=== PATIENT | female | born 1975 | race Caucasian/White ===

== ENCOUNTER 2017-07-12 12:08 | Emergency (ER) | payer BC, OTHER ==
--- NOTE | 2017-07-12 12:12 | EDM.PDOC ---
ED HPI GENERAL MEDICAL PROBLEM - General Chief Complaint: General Stated Complaint: Right shoulder pain Time Seen by Provider: 07/12/17 12:12 Source of Information: Reports: Patient, Old Records ([facility] chart/EMR) History Limitations: Reports: No Limitations - History of Present Illness INITIAL COMMENTS - FREE TEXT/NARRATIVE: The patient was brought to the emergency room via transport vehicle from [facility] for evaluation of a Workmen's Compensation injury, which occurred at about 11: 00 a.m. this morning. The patient was throwing about a 10 pound bag of garbage into the bin when she experienced sudden sharp and then subsequent throbbing 8/ 10 right shoulder pain with possible mild paresthesias extending to the distal aspects of her arm. She denies any previous shoulder injury, although she is right-handed. No treatment prior to arrival. The patient also states that there is also some mild exacerbation of her chronic intermittent right elbow pain, however no significant worsening discomfort on today's injury. No history of fall, injury, neurological deficits, neck/back pain, other injuries, etc. No recent history of abdominal pain, heartburn, nausea, diarrhea, melena, gross hematochezia, or any food intolerance, including fatty foods, etc.. The patient also denies any recent fever, cough, wheezing, dyspnea, etc.. Onset: Today Onset Date: 07/12/17 Onset Time: 11:00 Duration: Constant Location: Reports: Upper Extremity, Right, Radiates to (As above). 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 Denies: Allergic Rhinitis, Cataract , Glaucoma, Hard of Hearing, Impaired Vision, Macular Degeneration, Otitis Media , Retinal Detachment Other HEENT History: Borderline left-sided mastoiditis in December 2006 Cardiovascular History: Reports: Other (See Below). Denies: Afib, Aneurysm, Arrhythmia, Blood Clots/VTE/DVT, CAD, Heart Murmur, High Cholesterol, Hypertension, PA, Syncope Other Cardiovascular History: No apparent hyperlipidemia despite previous history of obesity and fatty liver Respiratory History: Reports: None, Intubation, Previous. Denies: Asthma, COPD , Intubation, Difficult, PE, Pneumothorax, Sleep Apnea, TB Gastrointestinal History: Reports: Cholelithiasis, Other (See Below). Denies: Bowel Obstruction, Celiac Disease, Chronic Constipation, Chronic Diarrhea, Fecal Incontinence, Gastritis, GERD, GI Bleed, Hepatitis, Inflammatory Bowel Disease, Irritable Bowel Syndrome, Jaundice, Pancreatitis, PUD Other Gastrointestinal History: Fatty liver Genitourinary History: Reports: None. 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 Denies: Spontaneous , Therapeutic : 3 Para: 3 LMP (Approximate): Other (See Below) Other OB/BYN History: Surgical menopause as below secondary to endometriosis. Full term without complications during pregnancies or deliveries Musculoskeletal History: Reports: Arthritis, Osteoarthritis. Denies: Amputation , Back Pain, Chronic, Fracture, Gout, Neck Pain, Chronic, Osteoporosis, RA, SLE Neurological History: Reports: None. Denies: Cerebral Aneurysms, Concussion, CVA, Headaches, Chronic, Head Trauma, Migraines, MS, Neuropathy, Peripheral, Parkinson's, Seizure, TIA Psychiatric History: Reports: Anxiety, Depression. Denies: Abuse, Victim of, ADD, ADHD, Addiction, Psych Hospitalization(s), PTSD, Suicide Attempt, Suicidal Ideation Endocrine/Metabolic History: Reports: Hypothyroidism, Obesity/BMI 30+. Denies: Diabetes, Type I, Diabetes, Type II, Diabetes Mellitus, Type 3c, IDDM Hematologic History: Reports: None. Denies: Anemia, Blood Transfusion(s) Immunologic History: Reports: None. Denies: AIDS, HIV, SLE Oncologic (Cancer) History: Reports: None. Denies: Breast, Cervix, Hodgkin's Lymphoma, Leukemia, Lymphoma, Malignant Melanoma, Non-Hodgkin's Lymphoma, Ovarian, Squamous Cell Carcinoma, Uterine Dermatologic History: Reports: Other (See Below). Denies: Eczema, Psoriasis Other Dermatologic History: Intermittent tinea corporis in the inframammary region - Infectious Disease History Infectious Disease History: Reports: Chicken Pox. Denies: C-Difficile, Measles , Meningitis, Mononucleosis, MRSA, Mumps, Pertussis (Whooping Cough), Rheumatic Fever, Rubella, Scarlet Fever, Shingles, TB, VRE - Past Surgical History Head Surgeries/Procedures: Reports: None HEENT Surgical History: Reports: Adenoidectomy, LASIK, Tonsillectomy, Other ( See Below). Denies: Cataract Surgery, Eye Surgery, Laser Surgery, Myringotomy w Tube(s), Naso-Sinus Surgery, Oral Surgery Other HEENT Surgeries/Procedures: Tonsillectomy and adenoidectomy at age 6. LASIK in 2002 with no current glasses required. Kin[place] teeth extraction 3 at age 26 Cardiovascular Surgical History: Reports: None. Denies: Varicose Respiratory Surgical History: Reports: None. Denies: Thoracentesis GI Surgical History: Reports: Cholecystectomy, Colonoscopy, Other (See Below). Denies: Appendectomy, EGD, Hernia, Abdominal, Hernia, Inguinal, Hernia Repair/ Other, Polypectomy Other GI Surgeries/Procedures: Cholecystectomy on 08/31/06. Colonoscopy in 1998. Female Surgical History: Reports: Hysterectomy, Tubal Ligation, Other (See Below). Denies: Section, D&C, Salpingo-Oophorectomy Other Female Surgeries/Procedures: Complete hysterectomy at age 36 secondary to endometriosis. Bilateral tubal ligation in November 2004. Endocrine Surgical History: Reports: None Neurological Surgical History: Reports: None. Denies: C-Spine, Discectomy, Laminectomy, Lumbar Spine, Sacral Spine, Spinal Fusion, Thoracic Spine, Vertebroplasty Musculoskeletal Surgical History: Reports: None. Denies: Arthroscopic Procedure , Carpal Tunnel, Ganglion Cyst, Joint Replacement, ORIF, Shoulder Surgery Oncologic Surgical History: Reports: None Dermatological Surgical History: Reports: None - Past Imaging History Past Imaging History: Reports: CAT Scan (CT of the temporal region on 08/31/16), Ultrasound (Right upper quadrant/hepatic/gallbladder ultrasound on 08/31/06, pelvic ultrasound on 03/10/03) Social & Family History - Family History Family Medical History: Noncontributory - Tobacco Use Smoking Status *Q: Current Every Day Smoker Tobacco Use Within Last Twelve Months: Cigarettes Years of Tobacco use: 2 Packs/Tins Daily: 0.5 Packs/Tins Daily Comment: Started smoking at age 39 Used Tobacco, but Quit: No Smoking Cessation Information Provided To Patient: Yes Second Hand Smoke Exposure: No Second Hand Smoke Education Provided: No - Caffeine Use Caffeine Use: Reports: Coffee (2 cups per day), Soda (1 soda per day). Denies: Energy Drinks, Tea - Alcohol Use Alcohol Use History: Yes Days Per Week of Alcohol Use: 0 Number of Drinks Per Day: 3 Number of Drinks Per Day Comment: No previous DWIs, problems with alcohol abuse , etc.. 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 ED EXAM, GENERAL - Physical Exam Exam: See Below Exam Limited By: No Limitations General Appearance: Alert, WD/WN, No Apparent Distress, Anxious (Mild) Head: Atraumatic, Normocephalic Neck: Normal Inspection, Supple, Non-Tender, Full Range of Motion. No: Lymphadenopathy (L), Lymphadenopathy (R), Thyromegaly Respiratory/Chest: No Respiratory Distress, Lungs Clear, Normal Breath Sounds, No Accessory Muscle Use, Chest Non-Tender. No: Pleural Rub, Retractions Cardiovascular: Normal Peripheral Pulses, Regular Rate, Rhythm, No Edema, No Gallop, No JVD, No Murmur, No Rub. No: Gallop/S3, Gallop/S4, Friction Rub Peripheral Pulses: 2+: Radial (L), Radial (R) GI/Abdominal: Normal Bowel Sounds, Soft, Non-Tender, No Organomegaly, No Distention, No Abnormal Bruit, No Mass. No: Guarding (Female) Exam: Deferred Rectal (Female) Exam: Deferred Back Exam: Normal Inspection, Full Range of Motion. No: CVA Tenderness (L), CVA Tenderness (R), Muscle Spasm Extremities: No Pedal Edema, Normal Capillary Refill, Arm Pain (Right shoulder as below with right elbow showing no significant localized tenderness and overall excellent range of motion), Limited Range of Motion (Mild in right shoulder secondary to pain with no subluxation, deformity, crepitation, effusion , instability, etc.). No: Joint Swelling, Tori's Sign, Increased Warmth Neurological: Alert, Oriented, CN II-XII Intact, Normal Cognition, Normal Gait, Normal Reflexes, No Motor/Sensory Deficits Psychiatric: Anxious (Mild). No: Depressed Mood Skin Exam: Warm, Dry, Intact, Normal Color, No Rash, Stud(s) (Bilateral auricular), Tattoo(s) (Multiple). No: Diaphoretic, Wound/Incision Lymphatic: No Adenopathy Course - Vital Signs Last Recorded V/S: Last Vital Signs Temp 36.4 C 07/12/17 12:10 Pulse 90 07/12/17 12:10 Resp 16 07/12/17 12:10 BP 123/85 07/12/17 12:10 Pulse Ox 100 07/12/17 12:10 Vital Signs - 24 hr 07/12/17 12:10 Temperature [ 36.4 C Temporal] Pulse, 90 Peripheral [ Pulse Oximetry] Respiratory 16 Rate Blood Pressure 123/85 [Left Upper Arm ] O2 Sat by Pulse 100 Oximetry - Orders/Labs/Meds Orders: Active Orders 24 hr Category Date Time Status Shoulder Comp Rt [CR] Stat Exams 07/12/17 12:13 Taken Obtain Past Medical Record [OM.PC] Routine Oth 07/12/17 12:12 Active Labs: None Meds: None - Radiology Interpretation Free Text/Narrative:: X-rays of the right shoulder, complete, shows no evidence of dislocation, fracture, etc. Departure - Departure Time of Disposition: 13:15 Disposition: Home, Self-Care 01 Condition: Good Clinical Impression: Tobacco abuse counseling, Mixed anxiety depressive disorder, Hypothyroidism ( acquired) Sprain of right shoulder Qualifiers: Encounter type: initial encounter Shoulder sprain type: unspecified sprain Qualified Code(s): S43.401A - Unspecified sprain of right shoulder joint, initial encounter Osteoarthritis Qualifiers: Osteoarthritis location: multiple joints Osteoarthritis type: primary Qualified Code(s): M15.0 - Primary generalized (osteo)arthritis - Discharge Information Instructions: Shoulder Pain, Shoulder Sprain Referrals: Lissy Rae MD [Primary Care Provider] - Forms: ED Department Discharge Additional Instructions: 1. Followup with your regular provider in 7 days as directed for reevaluation and possible repeat x-rays of your right shoulder depending on your symptoms at that time. Work excuse to be evaluated at that visit. 2. BenGay or equivalent, heating pad, and/or ice packs as directed. 3. Tylenol 650 mg by mouth every 4 hours and/or OTC ibuprofen 2-3 tabs by mouth every 6 hours with food as directed./needed. 4. Work excuse- See Form 5. Activity restrictions as discussed including limited use of your right arm and shoulder with 10 pound lifting restrictions until otherwise directed by your regular provider 6. Stop all tobacco use RANJITH as directed/per provided information and consider contacting Quit LIne, etc.. 7. Immediately after this visit verify that your cellular telephone's voicemail has been activated and is empty. Also verify that your home telephone 's answering machine is operating properly and has space to receive messages. Note that it is sometimes necessary for us to be able to contact you at a later date to discuss your medical care. - Problem List & Annotations (1) Sprain of right shoulder SNOMED Code(s): 0066520 Code(s): S43.401A - UNSPECIFIED SPRAIN OF RIGHT SHOULDER JOINT, INIT ENCNTR Status: Acute Priority: High Onset Date: 07/12/17 Annotation/Comment:: Symptomatic relief as per discharge instructions. Work excuse/[place] form and Workmen's Compensation forms were completed. Activity restrictions discussed. Close follow-up by regular provider. Qualifiers: Encounter type: initial encounter Shoulder sprain type: unspecified sprain Qualified Code(s): S43.401A - Unspecified sprain of right shoulder joint, initial encounter (2) Osteoarthritis SNOMED Code(s): 511943423 Code(s): M19.90 - UNSPECIFIED OSTEOARTHRITIS, UNSPECIFIED SITE Status: Chronic Priority: Medium Annotation/Comment:: Otherwise stable by history Qualifiers: Osteoarthritis location: multiple joints Osteoarthritis type: primary Qualified Code(s): M15.0 - Primary generalized (osteo)arthritis (3) Hypothyroidism (acquired) SNOMED Code(s): 737380133 Code(s): E03.9 - HYPOTHYROIDISM, UNSPECIFIED Status: Chronic Priority: Medium Annotation/Comment:: Currently under therapy and stable by history (4) Mixed anxiety depressive disorder SNOMED Code(s): 103970685 Code(s): F41.8 - OTHER SPECIFIED ANXIETY DISORDERS Status: Chronic Priority: Medium Annotation/Comment:: Stable by history (5) Tobacco abuse counseling SNOMED Code(s): 112954057, 180715407, [id number] Code(s): Z71.6 - TOBACCO ABUSE COUNSELING Status: Chronic Priority: Medium Annotation/Comment:: Stop all tobacco use RANJITH as directed/per provided information and consider contacting Quit LIne, etc.. - Problem List Review Problem List Initiated/Reviewed/Updated: Yes - My Orders Last 24 Hours: My Active Orders 07/12/17 12:12 Obtain Past Medical Record [OM.PC] Routine 07/12/17 12:13 Shoulder Comp Rt [CR] Stat - Assessment/Plan Last 24 Hours: My Active Orders 07/12/17 12:12 Obtain Past Medical Record [OM.PC] Routine 07/12/17 12:13 Shoulder Comp Rt [CR] Stat Assessment:: As above Plan: As above. Extensive precautions were given to the patient, who is in agreement with the treatment plan. See Patient Instructions for further treatment and plan.
== END 2017-07-12 13:15 | disposition home or self-care (01) ==
LOC: LL.ED 12:08
DX: S43.401A Unspecified sprain of right shoulder joint, initial encounter (principal); F41.8 Other specified anxiety disorders; E03.9 Hypothyroidism, unspecified; M15.0 Primary generalized (osteo)arthritis; E66.9 Obesity, unspecified; F17.210 Nicotine dependence, cigarettes, uncomplicated; Z71.6 Tobacco abuse counseling; Z79.899 Other long term (current) drug therapy
CPT/HCPCS: 73030-RT; 99283

== ENCOUNTER 2018-07-05 17:24 | Emergency (ER) | payer BC, OTHER ==
[2018-07-05] MEDS ORDERED: Aspirin 81 MG Tab.Chew CHEW ONE (17:31)
[2018-07-05] MEDS ORDERED: Famotidine 20 MG/2 ML SDV IVPUSH ONE (17:31)
[2018-07-05] MEDS ORDERED: Ticagrelor 90 MG Tab PO ONE (17:31)
--- NOTE | 2018-07-05 17:31 | EDM.PDOC ---
ED HPI GENERAL MEDICAL PROBLEM - General Chief Complaint: Chest Pain Stated Complaint: chest pain Time Seen by Provider: 07/05/18 17:31 Source of Information: Reports: Patient, EMS, Family (Sister, Isabel), Old Records ([facility] chart/EMR), Other ([facility] EMR). 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 Note that the patient was initially evaluated by her regular provider, Steven Jones PA-C, at the [facility] in [place], with an EKG performed in that clinic but no other medications or treatment prior to arrival of the paramedics. Note that the patient did have some significant dizziness and near syncopal episode at the [facility] prior to transfer. She complains of a 10/10 retrosternal chest pressure radiating into the interscapular regions bilaterally and right cervical region with additional dyspnea, and nausea with symptoms waking her up at 3 AM. She has also been having some nonspecific arthralgias during the last week. She did excessively using ibuprofen yesterday, including 600 mg on a daily on a 2-3 hour basis with last dose at about 19:30 hours yesterday evening. She is not taking any medications for her current symptoms since that time, including her narcotic pain medication for her recent right shoulder surgery as below. The patient denies any heart flutter, orthopnea, diaphoresis, paresthesias, recent decreased exercise tolerance, or any other anginal-type symptoms. No recent history of abdominal pain, heartburn, emesis, diarrhea, melena, gross hematochezia, or any food intolerance, including fatty foods, etc. with last bowel movement yesterday morning. She denies any gross hematuria, colic, or other UTI symptoms. The patient also denies any recent fever, cough, wheezing, etc.. Onset: Today, Sudden Onset Date: 07/05/18 Onset Time: 03:00 Location: Reports: Neck, Chest, Back, Radiates to (As above). Denies: Head, Face, Abdomen, Upper Extremity, Left, Upper Extremity, Right Quality: Reports: Pressure, Same as Previous Episode Severity: Severe Improves with: Reports: None Worsens with: Reports: None Context: Reports: Other (As above). Denies: Lifting, Sick Contact, Trauma Associated Symptoms: Reports: Chest Pain, Nausea/Vomiting (No emesis), Shortness of Breath, Syncope (Near syncope as above). 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, Other (see below) (As above) chest pain Pain Score (Numeric/FACES): 10 - Related Data Allergies Allergy/AdvReac Type Severity Reaction Status Date / Time No Known Allergies Allergy Verified 07/05/18 18:31 Home Meds: Home Meds FLUoxetine HCl [Fluoxetine HCl] 40 mg PO QAM 07/12/17 [History] Gabapentin [Neurontin] 600 mg PO QID 12/24/17 [History] Hydrocodone/Acetaminophen [Hydrocodon-Acetaminophn 10-325] 0.5 tab PO Q6HR PRN 12/24/17 [History] Levothyroxine 25 mcg PO QAM 12/24/17 [History] metFORMIN [Glucophage] 500 mg PO BID 12/24/17 [History] Cyclobenzaprine [Flexeril] 10 mg PO TID PRN #30 tab 07/05/18 [Rx] DULoxetine HCl [Duloxetine HCl] 60 mg PO QAM 07/05/18 [History] Ibuprofen 600 mg PO Q6H PRN 07/05/18 [History] Past Medical History HEENT History: Reports: Other (See Below). Denies: Allergic Rhinitis, Glaucoma , Hard of Hearing, Impaired Vision, Macular Degeneration, Otitis Media, Retinal Detachment Other HEENT History: Borderline left-sided mastoiditis in December 2006. Note status post LASIK surgery as below. Cardiovascular History: Reports: Other (See Below). Denies: Afib, Aneurysm, Arrhythmia, Blood Clots/VTE/DVT, CAD, Heart Failure, Heart Murmur, High Cholesterol, Hypertension, [place], PVD, Syncope Other Cardiovascular History: No apparent hyperlipidemia despite previous history of obesity and fatty liver Respiratory History: Reports: COPD, Intubation, Previous, Sleep Apnea. Denies: Asthma, Bronchitis, Recurrent, Intubation, Difficult, PE, Pneumonia, Recurrent, Pneumothorax, TB, Other (See Below) Other Respiratory History: Mild COPD by chest x-ray with history of tobacco use and no current medical therapy required. Severe obstructive sleep apnea with patient discontinuing her CPAP on her own. Gastrointestinal History: Reports: Cholelithiasis, Other (See Below). Denies: Celiac Disease, Chronic Constipation, Chronic Diarrhea, Fecal Incontinence, Gastritis, GERD, GI Bleed, Hepatitis, Hiatal Hernia, Irritable Bowel Syndrome, Jaundice, Pancreatitis Other Gastrointestinal History: Fatty liver Genitourinary History: Reports: Urinary Incontinence. Denies: Acute Renal Failure, Chronic Renal Insuffiency, Renal Calculus, STD, UTI, Recurrent MILD DISABILITIES TEACHER History: Reports: Dysfunctional Uterine Bleeding, Fibroids, : 3 Para: 3 LMP (Approximate): Other (See Below) Other MILD DISABILITIES TEACHER History: Surgical menopause as below secondary to endometriosis. Full term without complications during pregnancies or deliveries. Polycystic ovary syndrome with current metformin therapy. Musculoskeletal History: Reports: Arthritis, Back Pain, Chronic, Neck Pain, Chronic, Osteoarthritis. Denies: Amputation, Fracture, Gout, RA, SLE Other Musculoskeletal History: Complete right rotator cuff tear requiring surgery as below. Degenerative disc disease with some evidence of left neuroforaminal narrowing in L5 and S1. Neurological History: Reports: Neuropathy, Peripheral, Other (See Below). Denies: Cerebral Aneurysms, Concussion, CVA, Headaches, Chronic, Head Trauma, Migraines, MS, Parkinson's, Seizure, TIA, Vertigo Other Neuro History: Restless leg syndrome. Psychiatric History: Reports: Anxiety, Depression, Other (See Below). Denies: Abuse, Victim of, ADD, ADHD, Addiction, Psych Hospitalization(s), PTSD, Suicide Attempt, Suicidal Ideation Other Psychiatric History: Episode of major depression and unintentional drug overdose on 01/03/18. Insomnia. Endocrine/Metabolic History: Reports: Hypothyroidism, Obesity/BMI 30+, Other ( See Below). Denies: Diabetes, Gestational, Diabetes, Type I, Diabetes, Type II , Diabetes Mellitus, Type 3c, IDDM Other Endocrine/Metabolic History: Hyperinsulinism. Hematologic History: Reports: None. Denies: Anemia, Blood Transfusion(s), Iron Deficiency Immunologic History: Reports: None. Denies: AIDS, HIV, SLE Oncologic (Cancer) History: Reports: None. Denies: Basal Cell Carcinoma, Breast , Cervix, Hodgkin's Lymphoma, Leukemia, Lymphoma, Malignant Melanoma, Non- Hodgkin's Lymphoma, Ovarian, Squamous Cell Carcinoma, Uterine Dermatologic History: Reports: Other (See Below). Denies: Eczema, Psoriasis Other Dermatologic History: Intermittent tinea corporis in the inframammary region - Infectious Disease History Infectious Disease History: Reports: Chicken Pox. Denies: C-Difficile, Measles , Meningitis, Mononucleosis, MRSA, Mumps, Pertussis (Whooping Cough), Rheumatic Fever, Rubella, Scarlet Fever, Shingles, TB, VRE - Past Surgical History Head Surgeries/Procedures: Reports: None HEENT Surgical History: Reports: Adenoidectomy, LASIK, Tonsillectomy, Other ( See Below). Denies: Cataract Surgery, Eye Surgery, Laser Surgery, Myringotomy w Tube(s), Naso-Sinus Surgery, Oral Surgery Other HEENT Surgeries/Procedures: Tonsillectomy and adenoidectomy at age 6. LASIK in 2002 with no current glasses required. Dema teeth extraction 3 at age 26 Cardiovascular Surgical History: Reports: None. Denies: Varicose Respiratory Surgical History: Reports: None. Denies: Thoracentesis GI Surgical History: Reports: Cholecystectomy, Colonoscopy, Other (See Below). Denies: Appendectomy, EGD, Hernia, Abdominal, Hernia, Inguinal, Hernia Repair/ Other, Polypectomy Other GI Surgeries/Procedures: Laparoscopic Cholecystectomy January 1999. Colonoscopy in 1998. Female Surgical History: Reports: Breast Biopsy, Cystoscopy, Hysterectomy, Tubal Ligation, Other (See Below). Denies: Section, D&C, Oophorectomy , Salpingo-Oophorectomy Other Female Surgeries/Procedures: Complete hysterectomy with anterior suspension and concomitant cystoscopy on 02/02/11 secondary to fibroids and dysfunctional uterine bleeding. Bilateral tubal ligation on 12/09/04. Right- sided breast biopsy for benign disease on 07/04/13. Endocrine Surgical History: Reports: None. Denies: Thyroid Biopsy Neurological Surgical History: Reports: None. Denies: C-Spine, Discectomy, Laminectomy, Lumbar Spine, Sacral Spine, Spinal Fusion, Thoracic Spine, Vertebroplasty Musculoskeletal Surgical History: Reports: Shoulder Surgery, Other (See Below). Denies: Arthroscopic Procedure, Carpal Tunnel, Ganglion Cyst, Hip Replacement , Joint Replacement, ORIF Other Musculoskeletal Surgeries/Procedures:: Right-sided rotator cuff repair, debridement, etc. on 06/03/18. Oncologic Surgical History: Reports: None, Other (See Below) Other Oncologic Surgeries/Procedures: Right-sided breast biopsy for benign disease as above Dermatological Surgical History: Reports: None - Past Imaging History Past Imaging History: Reports: CAT Scan (CTA of the chest on 12/24/17. CT of the temporal region on 08/31/16. CT of the abdomen and pelvis on 12/24/17.), Mammogram (Last mammogram on 04/26/18.), MRI (MRI of the lumbar spine on 06/18/18 and 12/03/17. MRI of the right shoulder on 09/17/17. MRI of the breasts bilaterally on 05/13/18 and 06/13/13.), Stress Testing (Negative Lexiscan Cardiolite stress test on 12/25/17), Ultrasound (Right upper quadrant/hepatic/ gallbladder ultrasound on 08/31/06 and 12/10/04, pelvic ultrasound on 09/20/11 and 03/10/03. Multiple OB ultrasounds. Ultrasound of the right breast on 06/20/13 and . Abdominal ultrasound on 07/08/01. Thyroid ultrasound on 05/13/02.), Other ( See Below) (I 123 thyroid scan on 05/14/02) Social & Family History - Family History Family Medical History: Noncontributory Cardiac: Reports: CAD, Hypertension, Other (See Below) Other Cardiac Family History: Father with hypertension. Coronary artery disease in maternal grandfather and maternal grandmother. Endocrine/Metabolic: Reports: Diabetes, type II, Other (See Below) Other Endocrine/Metabolic Family History: Diabetes mellitus in paternal grandmother, maternal aunt, paternal and maternal grandfathers Oncologic: Reports: Breast, Lung, Other (See Below) Other Oncologic Family History: Fatal lung cancer in mother at age 44 with history of tobacco use and history of breast cancer as below. Breast cancer in mother, maternal grandmother, maternal great aunts 2 and maternal cousin - Tobacco Use Smoking Status *Q: Former Smoker Tobacco Use Within Last Twelve Months: Cigarettes Years of Tobacco use: 23 Packs/Tins Daily: 0 Packs/Tins Daily Comment: Stopped Smoking on 02/15/18 with previous use of one half pack per day with patient starting smoking at age 39. Used Tobacco, but Quit: Yes Month/Year Tobacco Last Used: As above Smoking Cessation Information Provided To Patient: No Second Hand Smoke Exposure: No Second Hand Smoke Education Provided: No - Caffeine Use Caffeine Use: Reports: Coffee (6 cups per day), Soda (1-2 sodas per day). Denies: Energy Drinks, Tea - Alcohol Use Alcohol Use History: Yes Days Per Week of Alcohol Use: 0 Number of Drinks Per Day: 3 Number of Drinks Per Day Comment: Usually beer about once every 3 months. No previous DWIs, problems with alcohol abuse, etc. 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 ED EXAM, GENERAL - Physical Exam Exam: See Below Exam Limited By: No Limitations General Appearance: Alert, WD/WN, No Apparent Distress, Anxious (Moderate to severe) Eye Exam: Bilateral Eye: EOMI, Normal Inspection (No nystagmus), PERRL Ears: Normal External Exam, Normal Canal, Hearing Grossly Normal, Normal TMs Nose: Normal Inspection, Normal Mucosa, No Blood Throat/Mouth: Normal Inspection, Normal Lips, Normal Teeth, Normal Gums, Normal Oropharynx, Normal Voice, No Airway Compromise. No: Dysphagia, Perioral Cyanosis Head: Atraumatic, Normocephalic. No: Facial Swelling, Facial Tenderness, Sinus Tenderness Neck: Normal Inspection, Supple, Non-Tender, Full Range of Motion. No: Carotid Bruit, Lymphadenopathy (L), Lymphadenopathy (R), Thyromegaly Respiratory/Chest: No Respiratory Distress, Lungs Clear, Normal Breath Sounds, No Accessory Muscle Use, Chest Non-Tender. No: Pleural Rub, Retractions Cardiovascular: Normal Peripheral Pulses, Regular Rate, Rhythm, No Edema, No Gallop, No JVD, No Murmur, No Rub. No: Gallop/S3, Gallop/S4, Extra Beats, Friction Rub Peripheral Pulses: 2+: Radial (L), Radial (R), Dorsalis Pedis (L), Dorsalis Pedis (R) GI/Abdominal: Normal Bowel Sounds, Soft, Non-Tender, No Organomegaly, No Distention, No Abnormal Bruit, No Mass, Pelvis Stable. No: Guarding (Female) Exam: Deferred Rectal (Female) Exam: Deferred Back Exam: Normal Inspection, Full Range of Motion. No: CVA Tenderness (L), CVA Tenderness (R), Muscle Spasm Extremities: No Pedal Edema, Normal Capillary Refill, Arm Pain (Normal postoperative right shoulder and arm pain with surgical site showing a local signs of infection), Limited Range of Motion (Secondary to recent right shoulder surgery as below with arm immobilizer in place). No: Tori's Sign Neurological: Alert, Oriented, CN II-XII Intact, Normal Cognition, Normal Gait, Normal Reflexes (Negative Babinski's), No Motor/Sensory Deficits Psychiatric: Anxious (Moderate to severe), Depressed Mood (Mild to moderate) Skin Exam: Warm, Dry, Intact, Normal Color, No Rash, Tattoo(s) (Multiple). No: Diaphoretic, Wound/Incision (Right shoulder surgical sites healed) Lymphatic: No Adenopathy EKG INTERPRETATION EKG Date: 07/05/18 Time: 17:54 Rhythm: NSR Rate (Beats/Min): 86 [place]: Normal (Neutral cardiac axis) P-Wave: Enlarged (Moderate diffuse biphasic P waves) QRS: Normal (0.09 seconds with improvement of previous repolarization changes and new T wave inversion in V1) ST-T: Normal (As above) QT: Normal ND/PQ Interval: 0.16 seconds Comparison: Change From Previous EKG (As above since 11/23/17 with stable EKG from earlier today at the [facility] as above) EKG Interpretation Comments: 1. No acute ischemic changes 2. Left atrial enlargement Course - Vital Signs Last Recorded V/S: Last Vital Signs Temp 36.8 C 07/05/18 17:37 Pulse 87 07/05/18 18:04 Resp 18 07/05/18 18:04 BP 135/95 H 07/05/18 18:09 Pulse Ox 100 07/05/18 18:04 Vital Signs - 24 hr 07/05/18 07/05/18 07/05/18 17:24 17:31 17:37 Temperature [ 36.8 C 36.8 C Temporal] Pulse, 93 90 Peripheral [ Left Pulse Oximetry] Respiratory 20 18 Rate Blood Pressure Blood Pressure 131/88 98/31 L [Left Upper Arm ] O2 Sat by Pulse 100 100 Oximetry O2 Sat by Pulse 100 Oximetry [Room Air] 07/05/18 07/05/18 07/05/18 18:04 18:09 18:33 Temperature [ Temporal] Pulse, 87 83 Peripheral [ Left Pulse Oximetry] Respiratory 18 16 Rate Blood Pressure 135/95 H Blood Pressure 135/95 H 135/88 [Left Upper Arm ] O2 Sat by Pulse 100 98 Oximetry O2 Sat by Pulse Oximetry [Room Air] 07/05/18 18:48 Temperature [ Temporal] Pulse, 78 Peripheral [ Left Pulse Oximetry] Respiratory 16 Rate Blood Pressure Blood Pressure 136/80 [Left Upper Arm ] O2 Sat by Pulse 99 Oximetry O2 Sat by Pulse Oximetry [Room Air] - Orders/Labs/Meds Orders: Active Orders 24 hr Category Date Time Status Cardiac Monitoring [RC] . DIRECTED Care 07/05/18 17:31 Active EKG Documentation Completion [RC] ASDIRECTED Care 07/05/18 17:31 Active Oxygen Therapy, ED [RC] PRN Care 07/05/18 17:31 Active Peripheral IV Care [RC] . DIRECTED Care 07/05/18 17:31 Active Pulse Oximetry [RC] CONTINUOUS Care 07/05/18 17:31 Active Up With Assistance [RC] PFP Care 07/05/18 17:31 Active Vital Signs [RC] PFP Care 07/05/18 17:31 Active Nothing per Oral Now Diet [DIET] Diet 07/05/18 Breakfast Active Chest 1V Frontal [CR] Stat Exams 07/05/18 17:31 Ordered Nitroglycerin [Nitrostat] Med 07/05/18 18:02 Stat 0.4 mg SL ONETIME STA Sodium Chloride 0.9% [Saline Flush] Med 07/05/18 17:31 Active 10 ml FLUSH ASDIRECTED PRN Obtain Past Medical Record [OM.PC] Urgent Oth 07/05/18 17:31 Active Peripheral IV Insertion Adult [OM.PC] Stat Oth 07/05/18 17:31 Ordered Resuscitation Status Stat Resus Stat 07/05/18 17:31 Ordered EKG 12 Lead [EK] Stat Ther 07/05/18 17:31 Ordered Medication Orders Nitroglycerin (Nitrostat) 0.4 mg SL ONETIME STA Stop: 07/06/18 18:03 Last Admin: 07/05/18 18:09 Dose: 0.4 mg Sodium Chloride (Saline Flush) 10 ml FLUSH ASDIRECTED PRN PRN Reason: Keep Vein Open Last Admin: 07/05/18 17:56 Dose: 10 ml Labs: Laboratory Tests 07/05/18 07/05/18 07/05/18 Range/Units 17:46 17:46 17:46 WBC 8.5 (4.0-10.2) K/uL RBC 4.88 (3.77-5.09) M/uL Hgb 15.3 (11.7-15.5) g/dL Hct 44.1 (34.0-46.0) % MCV 90.4 (84.0-98.0) fL MCH 31.4 (28.2-33.3) pg MCHC 34.7 (31.7-36.0) g/dL RDW 12.1 (11.2-14.1) % Plt Count 324 D (150-350) K/uL Neut % (Auto) 54.3 (45.0-80.0) % Lymph % (Auto) 37.7 (10.0-50.0) % [place] % (Auto) 5.5 (2.0-14.0) % Eos % (Auto) 2.1 (0.0-5.0) % Baso % (Auto) 0.4 (0.0-2.0) % Neut # (Auto) 4.62 (1.40-7.00) K/uL Lymph # (Auto) 3.21 (0.50-3.50) K/uL [place] # (Auto) 0.47 (0.00-1.00) K/uL Eos # (Auto) 0.18 (0.00-0.50) K/uL Baso # (Auto) 0.03 (0.00-0.20) K/uL PT 10.7 (9.5-12.0) SEC INR 1.0 APTT 31.1 (21.0-31.3) SEC D-Dimer, Quantitative 366 (0-400) ng/mL Sodium (136-145) mmol/L Potassium (3.5-5.1) mmol/L Chloride (98-107) mmol/L Carbon Dioxide (21.0-32.0) mmol/L BUN (7-18) mg/dL Creatinine (0.51-1.17) mg/dL Est Cr Clr Drug Dosing Estimated GFR (MDRD) mL/min Glucose (74-106) mg/dL Lactic Acid (0.4-2.0) mmol/L Uric Acid (2.6-7.2) mg/dL Calcium (8.5-10.1) mg/dL Magnesium (1.8-2.4) mg/dL Total Bilirubin (0.2-1.0) mg/dL AST (15-37) U/L ALT (12-78) U/L Alkaline Phosphatase (46-116) IU/L Creatine Kinase (26-308) U/L Creatine Kinase Index (0.0-2.5) % CK-MB (CK-2) (0.00-3.60) ng/mL Troponin I (0.000-0.056) ng/mL NT-Pro-B Natriuret Pep (0-125) pg/mL Total Protein (6.4-8.2) g/dL Albumin (3.4-5.0) g/dL TSH, Ultra Sensitive (0.358-3.740) mIU/mL 07/05/18 07/05/18 Range/Units 17:46 17:46 WBC (4.0-10.2) K/uL RBC (3.77-5.09) M/uL Hgb (11.7-15.5) g/dL Hct (34.0-46.0) % MCV (84.0-98.0) fL MCH (28.2-33.3) pg MCHC (31.7-36.0) g/dL RDW (11.2-14.1) % Plt Count (150-350) K/uL Neut % (Auto) (45.0-80.0) % Lymph % (Auto) (10.0-50.0) % [place] % (Auto) (2.0-14.0) % Eos % (Auto) (0.0-5.0) % Baso % (Auto) (0.0-2.0) % Neut # (Auto) (1.40-7.00) K/uL Lymph # (Auto) (0.50-3.50) K/uL [place] # (Auto) (0.00-1.00) K/uL Eos # (Auto) (0.00-0.50) K/uL Baso # (Auto) (0.00-0.20) K/uL PT (9.5-12.0) SEC INR APTT (21.0-31.3) SEC D-Dimer, Quantitative (0-400) ng/mL Sodium 137 (136-145) mmol/L Potassium 3.8 (3.5-5.1) mmol/L Chloride 101 (98-107) mmol/L Carbon Dioxide 21.3 (21.0-32.0) mmol/L BUN 8 (7-18) mg/dL Creatinine 0.80 (0.51-1.17) mg/dL Est Cr Clr Drug Dosing TNP Estimated GFR (MDRD) > 60 mL/min Glucose 112 H (74-106) mg/dL Lactic Acid 1.9 (0.4-2.0) mmol/L Uric Acid 3.5 (2.6-7.2) mg/dL Calcium 9.6 (8.5-10.1) mg/dL Magnesium 2.0 (1.8-2.4) mg/dL Total Bilirubin 0.4 (0.2-1.0) mg/dL AST 20 (15-37) U/L ALT 22 (12-78) U/L Alkaline Phosphatase 123 H (46-116) IU/L Creatine Kinase 73 (26-308) U/L Creatine Kinase Index 0.5 (0.0-2.5) % CK-MB (CK-2) 0.40 (0.00-3.60) ng/mL Troponin I 0.000 (0.000-0.056) ng/mL NT-Pro-B Natriuret Pep 128 H (0-125) pg/mL Total Protein 7.8 (6.4-8.2) g/dL Albumin 3.8 (3.4-5.0) g/dL TSH, Ultra Sensitive 3.733 (0.358-3.740) mIU/mL Meds: Medications Generic Name Dose Route Start Last Admin Trade Name Freq PRN Reason Stop Dose Admin Nitroglycerin 0.4 mg 07/05/18 18:02 07/05/18 18:09 Nitrostat SL 07/06/18 18:03 0.4 mg ONETIME STA Administration Sodium Chloride 10 ml 07/05/18 17:31 07/05/18 17:56 Saline Flush FLUSH 10 ml ASDIRECTED PRN Administration Keep Vein Open Discontinued Medications Generic Name Dose Route Start Last Admin Trade Name Constantinoq PRN Reason Stop Dose Admin Aspirin 324 mg 07/05/18 17:31 07/05/18 17:52 Aspirin CHEW 07/05/18 17:32 324 mg ONETIME ONE Administration Famotidine 40 mg 07/05/18 17:31 07/05/18 17:56 Pepcid IVPUSH 07/05/18 17:32 40 mg ONETIME ONE Administration Lorazepam 1 mg 07/05/18 18:37 Ativan IVPUSH 07/05/18 18:38 ONETIME ONE Methylprednisolone Acetate 80 mg 07/05/18 18:38 Depo-Medrol IM 07/05/18 18:39 ONETIME ONE Morphine Sulfate 2 mg 07/05/18 17:33 07/05/18 17:55 Morphine IVPUSH 07/05/18 17:34 2 mg ONETIME ONE Administration Nitroglycerin 0.5 gm 07/05/18 17:33 07/05/18 18:02 Nitro-Bid 2% TOP 07/05/18 17:34 Not Given ONETIME ONE Ondansetron HCl 4 mg 07/05/18 17:33 07/05/18 17:56 Zofran IVPUSH 07/05/18 17:34 4 mg ONETIME ONE Administration Ticagrelor 180 mg 07/05/18 17:31 07/05/18 17:52 Brilinta PO 07/05/18 17:32 180 mg ONETIME ONE Administration - Radiology Interpretation Free Text/Narrative:: court recording monitor showed normal sinus rhythm with heart rate in the 80-90s with occasional borderline tachycardia in the low 100s secondary to IV placement, stressors, etc.. No ectopy or arrhythmia Chest x-ray, portable, shows mild pulmonary obstructive disease with no cardiomegaly, CHF, pulmonary infiltrates, pneumothorax, etc. Departure - Departure Time of Disposition: 19:25 Disposition: Home, Self-Care 01 Condition: Good Clinical Impression: Mixed anxiety depressive disorder, Hypothyroidism (acquired), Chest wall pain Osteoarthritis Qualifiers: Osteoarthritis location: multiple joints Osteoarthritis type: primary Qualified Code(s): M15.0 - Primary generalized (osteo)arthritis Prescriptions: Cyclobenzaprine [Flexeril] 10 mg PO TID PRN #30 tab PRN Reason: Spasms Instructions: Chest Wall Pain, [id number] Referrals: Steven Jones PA [Primary Care Provider] - Forms: ED Department Discharge Additional Instructions: 1. Followup with your regular provider in 10-14 days as directed. Bring these discharge instructions with you to that visit. 2. Discuss current medical therapy with your provider at follow-up with consideration of adjusting your medications at that time secondary to ineffectiveness and possible interaction as discussed 3. Tylenol 650 mg by mouth every 4 hours and/or OTC ibuprofen 2-3 tabs by mouth every 6 hours with food as directed./needed. You may stagger these medications for 48-72 hours only, which essentially means that you are receiving a pain medication about every 2 hours. 4. BenGay or equivalent, heating pad, and/or ice packs as directed. 5. Sedation precautions with no driving, etc. for 18 hours because of emergency room medications. 6. Congratulations about stopping smoking. 7. Immediately after this visit verify that your cellular telephone's voicemail has been activated and is empty. Also verify that your home telephone 's answering machine is operating properly and has space to receive messages. Note that it is sometimes necessary for us to be able to contact you at a later date to discuss your medical care. 8. Please remember that we are ALWAYS here for you and want to answer any questions you may have. Feel free to call the hospital any time and we call you back RANJITH. 9. NEVER EXCEED THE RECOMMENDED DOSE OF MEDICINES, INCLUDING OTC MEDICINES, ETC. 10. Patient precautions with Flexeril therapy as discussed with decrease of dose to one half tablet, if needed - Problem List & Annotations (1) Chest wall pain SNOMED Code(s): 862273869 Code(s): R07.89 - OTHER CHEST PAIN Status: Acute Priority: High Current Visit: Yes Onset Date: 07/05/18 Annotation/Comment:: Chest pain protocol was initiated upon patient's arrival to the emergency room, however note that symptoms appear to be more chest wall related and are reproducible by my exam. No significant improvement of her symptoms after one sublingual nitroglycerin tablet with otherwise aggressive treatment as above. Patient did have similar symptoms in our emergency room on 01/03/18 with transfer to [facility] secondary to nonintentional drug overdose. Note the patient also did have a negative Lexiscan Cardiolite stress test on 12/25/17. The patient was extensively counseled concerning her excessive use of ibuprofen yesterday with proper dose as discussed prior to discharge. Strong anxiety chronic to her symptoms today. Note only minimally elevated BNP with no clinical evidence of CHF with otherwise normal EKG and cardiac enzymes. D-dimer is also normal with no clinical evidence of DVT or PE. (2) Hypothyroidism (acquired) SNOMED Code(s): 444779320 Code(s): E03.9 - HYPOTHYROIDISM, UNSPECIFIED Status: Chronic Priority: Medium Current Visit: Yes Annotation/Comment:: Currently under therapy with normal TSH today. (3) Mixed anxiety depressive disorder SNOMED Code(s): 268865717 Code(s): F41.8 - OTHER SPECIFIED ANXIETY DISORDERS Status: Chronic Priority: High Current Visit: Yes Annotation/Comment:: Overall poor control based on today's evaluation. Note that the patient is currently on multiple medications with significant risk of interaction and possible serotonin syndrome , which was discussed with the patient today. She will follow-up with her regular provider as per discharge instructions with adjustment of her medical therapy as discussed secondary to ineffectiveness and the risks as above. Emotional support was provided. Significant improvement at time of discharge. (4) Osteoarthritis SNOMED Code(s): 638442497 Code(s): M19.90 - UNSPECIFIED OSTEOARTHRITIS, UNSPECIFIED SITE Status: Chronic Priority: Medium Current Visit: Yes Annotation/Comment:: Note recent right shoulder surgery as above. Recent nonspecific diffuse arthralgias with IM Depo-Medrol given prior to discharge. Mildly elevated alkaline phosphatase likely secondary to recent right shoulder surgery. Qualifiers: Osteoarthritis location: multiple joints Osteoarthritis type: primary Qualified Code(s): M15.0 - Primary generalized (osteo)arthritis - Problem List Review Problem List Initiated/Reviewed/Updated: Yes - My Orders Last 24 Hours: My Active Orders 07/05/18 17:31 Cardiac Monitoring [RC] . DIRECTED EKG Documentation Completion [RC] ASDIRECTED Oxygen Therapy, ED [RC] PRN Peripheral IV Care [RC] . DIRECTED Pulse Oximetry [RC] CONTINUOUS Up With Assistance [RC] PFP Vital Signs [RC] PFP Chest 1V Frontal [CR] Stat Sodium Chloride 0.9% [Saline Flush] 10 ml FLUSH ASDIRECTED PRN Obtain Past Medical Record [OM.PC] Urgent Peripheral IV Insertion Adult [OM.PC] Stat Resuscitation Status Stat EKG 12 Lead [EK] Stat 07/05/18 18:02 Nitroglycerin [Nitrostat] 0.4 mg SL ONETIME STA 07/05/18 Breakfast Nothing per Oral Now Diet [DIET] - Assessment/Plan Last 24 Hours: My Active Orders 07/05/18 17:31 Cardiac Monitoring [RC] . DIRECTED EKG Documentation Completion [RC] ASDIRECTED Oxygen Therapy, ED [RC] PRN Peripheral IV Care [RC] . DIRECTED Pulse Oximetry [RC] CONTINUOUS Up With Assistance [RC] PFP Vital Signs [RC] PFP Chest 1V Frontal [CR] Stat Sodium Chloride 0.9% [Saline Flush] 10 ml FLUSH ASDIRECTED PRN Obtain Past Medical Record [OM.PC] Urgent Peripheral IV Insertion Adult [OM.PC] Stat Resuscitation Status Stat EKG 12 Lead [EK] Stat 07/05/18 18:02 Nitroglycerin [Nitrostat] 0.4 mg SL ONETIME STA 07/05/18 Breakfast Nothing per Oral Now Diet [DIET] Assessment:: As above Plan: As above. Extensive precautions were given to the patient and her significant other, who are in agreement with the treatment plan. See Patient Instructions for further treatment and plan.
[2018-07-05] MEDS ORDERED: Morphine 2 MG/ML Syringe IVPUSH ONE (17:33)
[2018-07-05] MEDS ORDERED: Ondansetron 4 MG/2 ML SDV IVPUSH ONE (17:33)
[2018-07-05] MEDS: Sodium Chloride 0.9% 10 ML Syringe FLUSH PRN ×2 (17:56→18:54)
[2018-07-05] MEDS: Nitroglycerin 2% Oint 1 GM UD Packet TOP ONE ×2 (17:56→18:02)
[2018-07-05] MEDS ORDERED: Nitroglycerin 0.4 MG Tab.SL SL STA (18:02)
[2018-07-05 18:13] LABS: CHLORIDE,CL 101 mmol/L (98-107); SODIUM,NA 137 mmol/L (136-145)
[2018-07-05] MEDS ORDERED: LORazepam 2 MG/ML SDV IVPUSH ONE (18:37)
[2018-07-05] MEDS ORDERED: methylPREDNISolone Acetate 80 MG/ML SDV IM ONE (18:38)
== END 2018-07-05 19:25 | disposition home or self-care (01) ==
LOC: LL.ED 17:24
DX: R07.89 Other chest pain (principal); F41.8 Other specified anxiety disorders; E03.9 Hypothyroidism, unspecified; M15.0 Primary generalized (osteo)arthritis; Z87.891 Personal history of nicotine dependence; Z79.899 Other long term (current) drug therapy
CPT/HCPCS: 36415; 71045; 80053; 82550; 82553; 83605; 83735; 83880; 84443; 84484; 84550; 85025; 85379; 85610; 85730; 93005; 96372; 96374; 99285-25; A9270-GY; J1040; J2060; J2270; J2405; J3490

== ENCOUNTER 2018-12-12 13:36 | Emergency (ER) | payer BC, MEDICAID, OTHER ==
--- NOTE | 2018-12-12 13:43 | EDM.PDOC ---
ED HPI GENERAL MEDICAL PROBLEM - General Chief Complaint: General Stated Complaint: Generalized pain, chest/back pain, itching Time Seen by Provider: 12/12/18 13:40 Source of Information: Reports: Patient, Old Records ([facility] chart/EMR), Other ([facility] EMR) History Limitations: Reports: No Limitations - History of Present Illness INITIAL COMMENTS - FREE TEXT/NARRATIVE: The patient was brought to the emergency room via wheelchair by the nurses from [facility] in [place] after initial presentation to her regular provider, Steven Jones PA-C, with no treatment or evaluation in their facility secondary to patient's current symptoms. Note that the patient has a two-week history of progressive diffuse nonspecific arthralgias, including in her chest, with worsening symptoms over the last couple of days. She has been taking 600 mg of ibuprofen on a every 4 hours basis, however has not had any ibuprofen this morning. No other medications taken prior to arrival to this facility. The patient denies any other true chest pain/pressure, heart flutter, dizziness, orthostasis, orthopnea, diaphoresis, paresthesias, recent decreased exercise tolerance, or any other anginal-type symptoms. She has had similar chest time symptoms in the past with frequent emergency room evaluations in this facility with negative workup and previous negative Cardiolite stress test as below. No recent history of abdominal pain, heartburn, nausea, diarrhea, melena, gross hematochezia, or any food intolerance, including fatty foods, etc.. She denies any gross hematuria, colic, or other UTI symptoms. The patient also denies any recent fever, wheezing, dyspnea, etc., although occasional intermittent nonproductive cough during the last couple weeks. She denies any known exposure to infection and has not had her influenza booster to this point. No previous workup for her recurrent arthralgias to this point. Onset: Gradual Duration: Week(s): (As above), Getting Worse Location: Reports: Generalized Quality: Reports: Ache, Same as Previous Episode Severity: Severe Improves with: Reports: None Worsens with: Reports: None Context: Reports: Other (As above). Denies: Sick Contact, Trauma Associated Symptoms: Reports: Chest Pain (Nonspecific as above), Cough. 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 PLANNER: Reports: NSAIDS, Other (see below) (as above) Generalized Pain Score (Numeric/FACES): 10 - Related Data Allergies Allergy/AdvReac Type Severity Reaction Status Date / Time No Known Allergies Allergy Verified 12/12/18 13:42 Home Meds: Home Meds FLUoxetine HCl [Fluoxetine HCl] 40 mg PO QAM 07/12/17 [History] Gabapentin [Neurontin] 600 mg PO BEDTIME 12/24/17 [History] Levothyroxine 25 mcg PO QAM 12/24/17 [History] metFORMIN [Glucophage] 250 mg PO BID 12/24/17 [History] DULoxetine HCl [Duloxetine HCl] 60 mg PO BEDTIME 07/05/18 [History] Cholecalciferol (Vitamin D3) [Vitamin D3] 1 tab PO DAILY 12/12/18 [History] Fish Oil/[place]-3 Fatty Acids [Fish Oil 1,000 MG] 1 tab PO DAILY 12/12/18 [ History] Multivitamin with Minerals [Multiple Vitamin] 1 tab PO DAILY 12/12/18 [History] Phentermine HCl 37.5 mg PO DAILY 12/12/18 [History] Past Medical History HEENT History: Reports: Other (See Below). Denies: Allergic Rhinitis, Glaucoma , Hard of Hearing, Impaired Vision, Macular Degeneration, Otitis Media, Retinal Detachment Other HEENT History: Borderline left-sided mastoiditis in December 2006. Note status post LASIK surgery as below. Cardiovascular History: Reports: Other (See Below). Denies: Afib, Aneurysm, Arrhythmia, Blood Clots/VTE/DVT, CAD, Heart Failure, Heart Murmur, High Cholesterol, Hypertension, [place], PVD, Syncope Other Cardiovascular History: No apparent hyperlipidemia despite previous history of obesity and fatty liver Respiratory History: Reports: COPD, Intubation, Previous, Sleep Apnea. Denies: Asthma, Bronchitis, Recurrent, Intubation, Difficult, PE, Pneumonia, Recurrent, Pneumothorax, TB, Other (See Below) Other Respiratory History: Mild COPD by chest x-ray with history of tobacco use and no current medical therapy required. Severe obstructive sleep apnea with patient discontinuing her CPAP on her own. Gastrointestinal History: Reports: Cholelithiasis, Other (See Below). Denies: Celiac Disease, Chronic Constipation, Chronic Diarrhea, Fecal Incontinence, Gastritis, GERD, GI Bleed, Hepatitis, Hiatal Hernia, Irritable Bowel Syndrome, Jaundice, Pancreatitis Other Gastrointestinal History: Fatty liver Genitourinary History: Reports: Urinary Incontinence. Denies: Acute Renal Failure, Chronic Renal Insuffiency, Renal Calculus, STD, UTI, Recurrent MEDICAL LANGUAGE SPECIALIST History: Reports: Dysfunctional Uterine Bleeding, Endometriosis, Fibroids , Polycystic Ovaries, . Denies: Spontaneous , Therapeutic : 3 Para: 3 LMP (Approximate): Other (See Below) Other MEDICAL LANGUAGE SPECIALIST History: Surgical menopause as below secondary to endometriosis. Full term without complications during pregnancies or deliveries. Polycystic ovary syndrome with current metformin therapy. Musculoskeletal History: Reports: Arthritis, Back Pain, Chronic, Neck Pain, Chronic, Osteoarthritis. Denies: Amputation, Fracture, Gout, RA, SLE Other Musculoskeletal History: Complete right rotator cuff tear requiring surgery as below. Degenerative disc disease with some evidence of left neuroforaminal narrowing in L5 and S1. Neurological History: Reports: Neuropathy, Peripheral, Other (See Below). Denies: Cerebral Aneurysms, Concussion, CVA, Headaches, Chronic, Head Trauma, Migraines, MS, Parkinson's, Seizure, TIA, Vertigo Other Neuro History: Restless leg syndrome. Psychiatric History: Reports: Anxiety, Depression, Other (See Below). Denies: Abuse, Victim of, ADD, ADHD, Addiction, Psych Hospitalization(s), PTSD, Suicide Attempt, Suicidal Ideation Other Psychiatric History: Episode of major depression and unintentional drug overdose on 01/03/18. Insomnia. Endocrine/Metabolic History: Reports: Hypothyroidism, Obesity/BMI 30+, Other ( See Below). Denies: Diabetes, Gestational, Diabetes, Type I, Diabetes, Type II , Diabetes Mellitus, Type 3c, IDDM Other Endocrine/Metabolic History: Hyperinsulinism. Hematologic History: Reports: None. Denies: Anemia, Blood Transfusion(s), Iron Deficiency Immunologic History: Reports: None. Denies: AIDS, HIV, SLE Oncologic (Cancer) History: Reports: None. Denies: Basal Cell Carcinoma, Breast , Cervix, Hodgkin's Lymphoma, Leukemia, Lymphoma, Malignant Melanoma, Non- Hodgkin's Lymphoma, Ovarian, Squamous Cell Carcinoma, Uterine Dermatologic History: Reports: Other (See Below). Denies: Eczema, Psoriasis Other Dermatologic History: Intermittent tinea corporis in the inframammary region - Infectious Disease History Infectious Disease History: Reports: Chicken Pox. Denies: C-Difficile, Measles , Meningitis, Mononucleosis, MRSA, Mumps, Pertussis (Whooping Cough), Rheumatic Fever, Rubella, Scarlet Fever, Shingles, TB, VRE - Past Surgical History Head Surgeries/Procedures: Reports: None HEENT Surgical History: Reports: Adenoidectomy, LASIK, Tonsillectomy, Other ( See Below). Denies: Cataract Surgery, Eye Surgery, Laser Surgery, Myringotomy w Tube(s), Naso-Sinus Surgery, Oral Surgery Other HEENT Surgeries/Procedures: Tonsillectomy and adenoidectomy at age 6. LASIK in 2002 with no current glasses required. Morrill teeth extraction 3 at age 26 Cardiovascular Surgical History: Reports: None. Denies: Varicose Respiratory Surgical History: Reports: None. Denies: Thoracentesis GI Surgical History: Reports: Cholecystectomy, Colonoscopy, Other (See Below). Denies: Appendectomy, EGD, Hernia, Abdominal, Hernia, Inguinal, Hernia Repair/ Other, Polypectomy Other GI Surgeries/Procedures: Laparoscopic Cholecystectomy January 1999. Colonoscopy in 1998. Female Surgical History: Reports: Breast Biopsy, Cystoscopy, Hysterectomy, Tubal Ligation, Other (See Below). Denies: Section, D&C, Oophorectomy , Salpingo-Oophorectomy Other Female Surgeries/Procedures: Complete hysterectomy with anterior suspension and concomitant cystoscopy on 02/02/11 secondary to endometriosis, fibroids and dysfunctional uterine bleeding. Bilateral tubal ligation on . Right-sided breast biopsy for benign disease on 07/04/13. Endocrine Surgical History: Reports: None. Denies: Thyroid Biopsy Neurological Surgical History: Reports: None. Denies: C-Spine, Discectomy, Laminectomy, Lumbar Spine, Sacral Spine, Spinal Fusion, Thoracic Spine, Vertebroplasty Musculoskeletal Surgical History: Reports: Shoulder Surgery, Other (See Below). Denies: Arthroscopic Procedure, Carpal Tunnel, Ganglion Cyst, Hip Replacement , Joint Replacement, ORIF Other Musculoskeletal Surgeries/Procedures:: Right-sided arthroscopic rotator cuff repair, debridement, etc. on 06/03/18. Oncologic Surgical History: Reports: None, Other (See Below) Other Oncologic Surgeries/Procedures: Right-sided breast biopsy for benign disease as above Dermatological Surgical History: Reports: None - Past Imaging History Past Imaging History: Reports: CAT Scan (CTA of the chest on 12/24/17. CT of the temporal region on 08/31/16. CT of the abdomen and pelvis on 12/24/17.), Mammogram (Last mammogram on 10/30/18.), MRI (Last MRI of the breasts bilaterally on 11/06/18 with previous evaluations on 05/13/18 and 06/13/13. MRI of the lumbar spine on 06/18/18 and 12/03/17. MRI of the right shoulder on .), Stress Testing (Negative Lexiscan Cardiolite stress test on 12/25/17 with ejection fraction of 60%.), Ultrasound (Right upper quadrant/hepatic/ gallbladder ultrasound on 08/31/06 and 12/10/04, pelvic ultrasound on 09/20/11 and 03/10/03. Multiple OB ultrasounds. Ultrasound of the right breast on 06/20/13 and . Abdominal ultrasound on 07/08/01. Thyroid ultrasound on 05/13/02.), Other ( See Below) (I 123 thyroid scan on 05/14/02) Social & Family History - Family History Family Medical History: Noncontributory Cardiac: Reports: CAD, Hypertension, Other (See Below) Other Cardiac Family History: Father with hypertension. Coronary artery disease in maternal grandfather and maternal grandmother. Endocrine/Metabolic: Reports: Diabetes, type II, Other (See Below) Other Endocrine/Metabolic Family History: Diabetes mellitus in paternal grandmother, maternal aunt, paternal and maternal grandfathers Oncologic: Reports: Breast, Lung, Other (See Below) Other Oncologic Family History: Fatal lung cancer in mother at age 44 with history of tobacco use and history of breast cancer as below. Breast cancer in mother, maternal grandmother, maternal great aunts 2 and maternal cousin - Tobacco Use Smoking Status *Q: Former Smoker Tobacco Use Within Last Twelve Months: No Years of Tobacco use: 23 Packs/Tins Daily: 0.5 Packs/Tins Daily Comment: Stop smoking on 02/15/18 with previous use of one half pack per day with patient started smoking at age 39. Used Tobacco, but Quit: Yes Smoking Cessation Information Provided To Patient: No Second Hand Smoke Exposure: No Second Hand Smoke Education Provided: No - Caffeine Use Caffeine Use: Reports: Coffee (3 cups per day), Soda (1-2 sodas per day). Denies: Energy Drinks, Tea - Alcohol Use Alcohol Use History: Yes Days Per Week of Alcohol Use: 0 Number of Drinks Per Day: 3 Number of Drinks Per Day Comment: Usually beer about every 3 months. No previous DWIs, problems with alcohol abuse, etc. 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 ED EXAM, GENERAL - Physical Exam Exam: See Below Exam Limited By: No Limitations General Appearance: Alert, WD/WN, No Apparent Distress, Anxious (Moderate) Eye Exam: Bilateral Eye: EOMI, Normal Inspection (No nystagmus), PERRL Ears: Normal External Exam, Normal Canal, Hearing Grossly Normal, Normal TMs Nose: Normal Inspection, Normal Mucosa, No Blood Throat/Mouth: Normal Inspection, Normal Lips, Normal Teeth, Normal Gums, Normal Oropharynx, Normal Voice, No Airway Compromise. No: Dysphagia, Perioral Cyanosis Head: Atraumatic, Normocephalic. No: Facial Swelling, Facial Tenderness, Sinus Tenderness Neck: Normal Inspection, Supple, Non-Tender, Full Range of Motion. No: Lymphadenopathy (L), Lymphadenopathy (R), Thyromegaly Respiratory/Chest: No Respiratory Distress, Lungs Clear, Normal Breath Sounds, No Accessory Muscle Use, Chest Non-Tender. No: Pleural Rub, Retractions Cardiovascular: Normal Peripheral Pulses, Regular Rate, Rhythm, No Edema, No Gallop, No JVD, No Murmur, No Rub. No: Gallop/S3, Gallop/S4, Friction Rub Peripheral Pulses: 2+: Radial (L), Radial (R), Dorsalis Pedis (L), Dorsalis Pedis (R) GI/Abdominal: Normal Bowel Sounds, Soft, Non-Tender, No Organomegaly, No Distention, No Abnormal Bruit, No Mass. No: Guarding (Female) Exam: Deferred Rectal (Female) Exam: Deferred Back Exam: Normal Inspection, Full Range of Motion. No: CVA Tenderness (L), CVA Tenderness (R), Muscle Spasm Extremities: Normal Inspection, Normal Range of Motion, Non-Tender, No Pedal Edema, Normal Capillary Refill. No: Tori's Sign Neurological: Alert, Oriented, CN II-XII Intact, Normal Cognition, Normal Gait, Normal Reflexes (Negative Babinski's), No Motor/Sensory Deficits Psychiatric: Anxious (Moderate), Depressed Mood (Moderate with adequate eye contact) Skin Exam: Warm, Dry, Intact, Normal Color, No Rash, Tattoo(s) (Multiple). No: Diaphoretic Lymphatic: No Adenopathy Course - Vital Signs Last Recorded V/S: Last Vital Signs Temp 36.9 C 12/12/18 13:38 Pulse 72 12/12/18 15:40 Resp 15 12/12/18 15:40 BP 143/75 H 12/12/18 15:40 Pulse Ox 98 12/12/18 15:40 Vital Signs - 24 hr 12/12/18 12/12/18 12/12/18 13:38 13:53 14:15 Temperature [ 36.9 C Oral] Pulse, 94 Peripheral [ Pulse Oximetry] Respiratory 17 15 15 Rate Blood Pressure 148/89 H 143/89 H 139/70 [Right Upper Arm] O2 Sat by Pulse 100 100 100 Oximetry 12/12/18 12/12/18 12/12/18 14:30 14:40 14:55 Temperature [ Oral] Pulse, Peripheral [ Pulse Oximetry] Respiratory 11 L 14 13 Rate Blood Pressure 143/88 H 129/75 127/77 [Right Upper Arm] O2 Sat by Pulse 100 100 99 Oximetry - Orders/Labs/Meds Orders: Active Orders 24 hr Category Date Time Status Cardiac Monitoring [RC] . DIRECTED Care 12/12/18 13:46 Active Peripheral IV Care [RC] . DIRECTED Care 12/12/18 13:45 Active Chest 2V [CR] Urgent Exams 12/12/18 13:56 Taken LINETTE W/REFLEX [REF] Routine Lab 12/12/18 13:55 Received CULTURE STREP A CONFIRMATION [RM] Stat Lab 12/12/18 13:56 Results RHEUMATOID FACTOR [REF] Stat Lab 12/12/18 13:55 Received STREP SCRN A RAPID W CULT CONF [RM] Stat Lab 12/12/18 13:56 Results Obtain Past Medical Record [OM.PC] Routine Oth 12/12/18 13:43 Active Peripheral IV Insertion Adult [OM.PC] Routine Oth 12/12/18 13:45 Ordered Labs: Laboratory Tests 12/12/18 12/12/18 12/12/18 Range/Units 13:55 13:55 13:55 WBC 7.7 (4.0-10.2) K/uL RBC 4.94 (3.77-5.09) M/uL Hgb 15.1 (11.7-15.5) g/dL Hct 44.9 (34.0-46.0) % MCV 90.9 (84.0-98.0) fL MCH 30.6 (28.2-33.3) pg MCHC 33.6 (31.7-36.0) g/dL RDW 12.2 (11.2-14.1) % Plt Count 314 (150-350) K/uL Neut % (Auto) 62.9 (45.0-80.0) % Lymph % (Auto) 30.1 (10.0-50.0) % Sharkey % (Auto) 5.2 (2.0-14.0) % Eos % (Auto) 1.4 (0.0-5.0) % Baso % (Auto) 0.4 (0.0-2.0) % Neut # (Auto) 4.84 (1.40-7.00) K/uL Lymph # (Auto) 2.32 (0.50-3.50) K/uL Sharkey # (Auto) 0.40 (0.00-1.00) K/uL Eos # (Auto) 0.11 (0.00-0.50) K/uL Baso # (Auto) 0.03 (0.00-0.20) K/uL ESR 9 (0-20) mm/hr Sodium 139 (136-145) mmol/L Potassium 3.7 (3.5-5.1) mmol/L Chloride 105 (98-107) mmol/L Carbon Dioxide 23.0 (21.0-32.0) mmol/L BUN 7 (7-18) mg/dL Creatinine 0.81 (0.51-1.17) mg/dL Est Cr Clr Drug Dosing TNP Estimated GFR (MDRD) > 60 mL/min Glucose 129 H (74-106) mg/dL Uric Acid (2.6-7.2) mg/dL Calcium 9.4 (8.5-10.1) mg/dL Magnesium (1.8-2.4) mg/dL Total Bilirubin 0.2 (0.2-1.0) mg/dL AST 14 L (15-37) U/L ALT 22 (12-78) U/L Alkaline Phosphatase 111 (46-116) IU/L C-Reactive Protein (<=0.9) mg/dL Total Protein 7.5 (6.4-8.2) g/dL Albumin 3.8 (3.4-5.0) g/dL 12/12/18 Range/Units 13:55 WBC (4.0-10.2) K/uL RBC (3.77-5.09) M/uL Hgb (11.7-15.5) g/dL Hct (34.0-46.0) % MCV (84.0-98.0) fL MCH (28.2-33.3) pg MCHC (31.7-36.0) g/dL RDW (11.2-14.1) % Plt Count (150-350) K/uL Neut % (Auto) (45.0-80.0) % Lymph % (Auto) (10.0-50.0) % Sharkey % (Auto) (2.0-14.0) % Eos % (Auto) (0.0-5.0) % Baso % (Auto) (0.0-2.0) % Neut # (Auto) (1.40-7.00) K/uL Lymph # (Auto) (0.50-3.50) K/uL Sharkey # (Auto) (0.00-1.00) K/uL Eos # (Auto) (0.00-0.50) K/uL Baso # (Auto) (0.00-0.20) K/uL ESR (0-20) mm/hr Sodium (136-145) mmol/L Potassium (3.5-5.1) mmol/L Chloride (98-107) mmol/L Carbon Dioxide (21.0-32.0) mmol/L BUN (7-18) mg/dL Creatinine (0.51-1.17) mg/dL Est Cr Clr Drug Dosing Estimated GFR (MDRD) mL/min Glucose (74-106) mg/dL Uric Acid 2.9 (2.6-7.2) mg/dL Calcium (8.5-10.1) mg/dL Magnesium 1.9 (1.8-2.4) mg/dL Total Bilirubin (0.2-1.0) mg/dL AST (15-37) U/L ALT (12-78) U/L Alkaline Phosphatase (46-116) IU/L C-Reactive Protein < 0.1 (<=0.9) mg/dL Total Protein (6.4-8.2) g/dL Albumin (3.4-5.0) g/dL LINETTE with reflex and RF drawn with results pending. Microbiology 12/12/18 13:56 Influenza Type A Antigen Screen - Final Nasal, Left NEGATIVE INFLUENZA A VIRUS AG REFERENCE RANGE: NEGATIVE Influenza Type B Antigen Screen - Final NEGATIVE INFLUENZA B VIRUS AG REFERENCE RANGE: NEGATIVE 12/12/18 13:56 Group A Streptococcus Rapid Screen - Final Throat NEGATIVE STREP A SCREEN REFERENCE RANGE: NEGATIVE Meds: Medications Discontinued Medications Generic Name Dose Route Start Last Admin Trade Name Freq PRN Reason Stop Dose Admin Famotidine 40 mg 12/12/18 13:46 12/12/18 13:58 Pepcid IVPUSH 12/12/18 13:47 40 mg ONETIME ONE Administration Ketorolac Tromethamine 30 mg 12/12/18 13:45 12/12/18 13:57 Toradol IVPUSH 12/12/18 13:46 30 mg ONETIME ONE Administration Methylprednisolone Sodium Succinate 125 mg 12/12/18 13:45 12/12/18 13:58 Solu-Medrol IVPUSH 12/12/18 13:46 125 mg ONETIME ONE Administration Sodium Chloride 10 ml 12/12/18 13:45 12/12/18 13:58 Saline Flush FLUSH 10 ml ASDIRECTED PRN Administration Keep Vein Open - Radiology Interpretation Free Text/Narrative:: nurse monitoring shows normal sinus rhythm with heart rate in the 80s to 90s with no ectopy or arrhythmia. Chest x-ray, PA and lateral, shows mild to moderate pulmonary obstructive changes and osteophytic changes with no cardiomegaly, CHF, pulmonary infiltrates , etc. Departure - Departure Time of Disposition: 15:40 Disposition: Home, Self-Care 01 Condition: Good Clinical Impression: Hypothyroidism (acquired), Mixed anxiety depressive disorder Osteoarthritis Qualifiers: Osteoarthritis location: multiple joints Osteoarthritis type: primary Qualified Code(s): M15.0 - Primary generalized (osteo)arthritis Sleep apnea Qualifiers: Sleep apnea type: unspecified type Qualified Code(s): G47.30 - Sleep apnea, unspecified - Discharge Information *PRESCRIPTION DRUG MONITORING PROGRAM REVIEWED*: Not Applicable *COPY OF PRESCRIPTION DRUG MONITORING REPORT IN PATIENT ZEE: Not Applicable Referrals: Steven Jones PA [Primary Care Provider] - Forms: ED Department Discharge Additional Instructions: 1. Followup with your regular provider in 10-14 days as directed for reevaluation, including today's pending blood work results. Bring these discharge instructions with you to that visit. 2. BenGay or equivalent, heating pad, and/or ice packs as directed. 3. Tylenol 650 mg by mouth every 4 hours and/or OTC ibuprofen 2-3 tabs by mouth every 6 hours with food as directed./needed. You may stagger these medications for 48-72 hours only, which essentially means that you are receiving a pain medication about every 2 hours. Next dose of ibuprofen as needed in 6 hours secondary to medications given in the emergency room 4. Immediately after this visit verify that your cellular telephone's voicemail has been activated and is empty. Also verify that your home telephone 's answering machine is operating properly and has space to receive messages. Note that it is sometimes necessary for us to be able to contact you at a later date to discuss your medical care. 5. Please remember that we are ALWAYS here for you and want to answer any questions you may have. Feel free to call the hospital any time and we call you back RANJITH. 6. Consider possible referral to rheumatology at follow-up visit depending on work results, clinical course, etc. 7. NEVER EXCEED THE RECOMMENDED DOSE OF MEDICINES, INCLUDING OTC MEDICINES, ETC. 8. Obtain influenza booster at follow-up, if symptoms are stable/improved - Problem List & Annotations (1) Osteoarthritis SNOMED Code(s): 399333883 Code(s): M19.90 - UNSPECIFIED OSTEOARTHRITIS, UNSPECIFIED SITE Status: Chronic Priority: High Annotation/Comment:: Nonspecific diffuse arthralgias of unknown etiology as above. LINETTE with reflex and RF results are still pending and should be discussed with the patient's regular provider at follow-up. Consider rheumatology referral at that time depending on her clinical course. Aggressive treatment in the emergency room including IV Toradol and IV Solu- Medrol. Anxiety component to patient's symptoms. Qualifiers: Osteoarthritis location: multiple joints Osteoarthritis type: primary Qualified Code(s): M15.0 - Primary generalized (osteo)arthritis (2) Mixed anxiety depressive disorder SNOMED Code(s): 048629610 Code(s): F41.8 - OTHER SPECIFIED ANXIETY DISORDERS Status: Chronic Priority: High Annotation/Comment:: Overall moderately poor control based on today's evaluation. Note that the patient is currently on multiple medications with significant risk of interaction and possible serotonin syndrome, which was discussed with the patient today. She will follow-up with her regular provider as per discharge instructions with adjustment of her medical therapy as discussed secondary to ineffectiveness and the risks as above. Emotional support was provided. (3) Sleep apnea SNOMED Code(s): 46084118 Code(s): G47.30 - SLEEP APNEA, UNSPECIFIED Status: Chronic Priority: Medium Annotation/Comment:: Note patient could not tolerate CPAP. Mild COPD changes by chest x-ray with nonspecific chronic cough today. Additional history of restless leg syndrome as above. Continue to observe closely by regular provider. Qualifiers: Sleep apnea type: unspecified type Qualified Code(s): G47.30 - Sleep apnea , unspecified (4) Hypothyroidism (acquired) SNOMED Code(s): 907222720 Code(s): E03.9 - HYPOTHYROIDISM, UNSPECIFIED Status: Chronic Priority: Medium Annotation/Comment:: Currently under therapy - Problem List Review Problem List Initiated/Reviewed/Updated: Yes - My Orders Last 24 Hours: My Active Orders 12/12/18 13:43 Obtain Past Medical Record [OM.PC] Routine 12/12/18 13:45 Peripheral IV Care [RC] . DIRECTED Peripheral IV Insertion Adult [OM.PC] Routine 12/12/18 13:46 Cardiac Monitoring [RC] . DIRECTED 12/12/18 13:55 LINETTE W/REFLEX [REF] Routine RHEUMATOID FACTOR [REF] Stat 12/12/18 13:56 Chest 2V [CR] Urgent CULTURE STREP A CONFIRMATION [RM] Stat STREP SCRN A RAPID W CULT CONF [RM] Stat - Assessment/Plan Last 24 Hours: My Active Orders 12/12/18 13:43 Obtain Past Medical Record [OM.PC] Routine 12/12/18 13:45 Peripheral IV Care [RC] . DIRECTED Peripheral IV Insertion Adult [OM.PC] Routine 12/12/18 13:46 Cardiac Monitoring [RC] . DIRECTED 12/12/18 13:55 LINETTE W/REFLEX [REF] Routine RHEUMATOID FACTOR [REF] Stat 12/12/18 13:56 Chest 2V [CR] Urgent CULTURE STREP A CONFIRMATION [RM] Stat STREP SCRN A RAPID W CULT CONF [RM] Stat Assessment:: As above Plan: As above. Extensive precautions were given to the patient, who is in agreement with the treatment plan. See Patient Instructions for further treatment and [email or web address]
[2018-12-12] MEDS ORDERED: methylPREDNISolone Sodium Succinate 125 MG/2 ML SDV IVPUSH ONE (13:45)
[2018-12-12] MEDS ORDERED: Sodium Chloride 0.9% 10 ML Syringe FLUSH PRN (13:45)
[2018-12-12] MEDS ORDERED: Ketorolac 30 MG/ML SDV IVPUSH ONE (13:45)
[2018-12-12] MEDS ORDERED: Famotidine 20 MG/2 ML SDV IVPUSH ONE (13:46)
[2018-12-12 14:12] LABS: CHLORIDE,CL 105 mmol/L (98-107); SODIUM,NA 139 mmol/L (136-145)
== END 2018-12-12 15:40 | disposition home or self-care (01) ==
LOC: LL.ED 13:36
DX: E03.9 Hypothyroidism, unspecified (principal); F41.8 Other specified anxiety disorders; M15.0 Primary generalized (osteo)arthritis; G47.30 Sleep apnea, unspecified; J44.9 Chronic obstructive pulmonary disease, unspecified; E66.9 Obesity, unspecified; Z68.30 Body mass index [BMI] 30.0-30.9, adult; Z87.891 Personal history of nicotine dependence; Z79.899 Other long term (current) drug therapy; Z79.890 Hormone replacement therapy
CPT/HCPCS: 71046; 80053; 83735; 84550; 85025; 85652; 86038; 86140; 86431; 87081; 87430; 87804; 96374; 96375; 99284-25; J1885; J2930; J3490

== ENCOUNTER 2022-03-09 10:53 | Day surgery (SDC) | payer MEDICAID ==
[~2022-03-09 10:53] MED LIST: Lactated Ringers 1,000 ML IV SCH; Midazolam 1 MG/ML 2 ML SDV ONE; Propofol 200 MG/20 ML SDV ONE; Sodium Chloride 0.9% 10 ML Syringe FLUSH PRN
== END 2022-03-09 13:15 | disposition home or self-care (01) ==
LOC: LL.SDS 10:53
PROVIDERS: ATTEND Surgery
DX: Z12.11 Encounter for screening for malignant neoplasm of colon (principal); I11.0 Hypertensive heart disease with heart failure; I50.9 Heart failure, unspecified; E78.00 Pure hypercholesterolemia, unspecified; J44.9 Chronic obstructive pulmonary disease, unspecified; G47.30 Sleep apnea, unspecified; K21.9 Gastro-esophageal reflux disease without esophagitis; K58.9 Irritable bowel syndrome, unspecified; G89.29 Other chronic pain; M54.9 Dorsalgia, unspecified; G62.9 Polyneuropathy, unspecified; E16.1 Other hypoglycemia; F33.9 Major depressive disorder, recurrent, unspecified; G47.00 Insomnia, unspecified; E03.9 Hypothyroidism, unspecified; E06.3 Autoimmune thyroiditis; Z79.890 Hormone replacement therapy; Z79.84 Long term (current) use of oral hypoglycemic drugs; Z79.899 Other long term (current) drug therapy; Z98.890 Other specified postprocedural states; Z90.49 Acquired absence of other specified parts of digestive tract; Z90.710 Acquired absence of both cervix and uterus
CPT/HCPCS: 45378; 82947; J2250; J2704; J7120; 00812